=== PATIENT | female | born 1960 | race African-American/Black ===

== ENCOUNTER 2016-02-28 11:27 | Emergency (ER) | payer OTHER, MEDICAID ==
[2016-02-28] MEDS ORDERED: SODIUM CHLORIDE 0.9% 1,000 ML ONE (14:52)
[2016-02-28] MEDS ORDERED: ONDANSETRON 4 MG VIAL ONE (14:52)
== END 2016-02-28 16:41 | disposition left against medical advice (07) ==
LOC: ER 11:27
CPT/HCPCS: 74022 ×2; 93005 ×2; 96361 ×2; 96374 ×2; 99285; J2405